=== PATIENT | male | born 1995 | race Caucasian/White ===

== ENCOUNTER 2018-05-18 14:31 | Emergency (ER) | payer OTHER ==
[2018-05-18 14:51] VITALS: BP 144/72
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
== END 2018-05-18 15:39 | disposition home or self-care (01) ==
DX: S06.0X9A Concussion with loss of consciousness of unspecified duration, initial encounter (principal); W22.8XXA Striking against or struck by other objects, initial encounter